=== PATIENT | male | born 1945 | race Caucasian/White ===

== ENCOUNTER 2023-03-21 21:34 | Inpatient (IN) | payer MEDICARE, OTHER ==
[~2023-03-21] VITALS: Ht 167.6 cm; Wt 102.2 kg
[2023-03-21 22:09] VITALS: BP_SYST 120; PULSE 96; RESP 18; TEMP 98.3; O2SAT 97
[2023-03-21 22:55] LABS: EOSINOPHILS # (AUTO) 0.2 K/uL (0.0-0.4); LYMPHOCYTES # (AUTO) 0.9 K/uL (1.0-5.5); WHITE BLOOD COUNT (AUTO) 5.9 K/uL (4.8-10.8)
[2023-03-21 22:59] LABS: ANION GAP 9 (5-15); CALCIUM 8.6 mg/dL (8.4-11.0); CARBON DIOXIDE 26 mmol/L (23-29); CHLORIDE 106 mmol/L (98-107); GLUCOSE 192 mg/dL (74-106); POTASSIUM 4.2 mmol/L (3.5-5.1); SODIUM SERUM 141 mmol/L (136-145); UREA NITROGEN, BLOOD 14 mg/dL (8-21)
[2023-03-21 23:02] LABS: PROTHROMBIN TIME 10.2 SECS (9.5-12.5)
[2023-03-21 23:04] LABS: BASOPHILS # (AUTO) 0.1 K/uL (0.0-0.2); BASOPHILS % (AUTO) 0.9 % (0.0-2.0); EOSINOPHILS % (AUTO) 3.4 % (0.0-4.0); HEMOGLOBIN 12.7 g/dL (14.0-18.0); MEAN CORPUSCULAR HEMOGLOBIN 30 pg (27-31); MEAN CORPUSCULAR HGB CONC 33 % (32-36); MEAN CORPUSCULAR VOLUME 93 fL (79.0-98.0); MONOCYTES # (AUTO) 0.5 K/uL (0.0-1.0); NEUTROPHILS # (AUTO) 4.2 K/uL (1.8-7.7); NEUTROPHILS % (AUTO) 71.7 % (40.0-70.0); PLATELET COUNT (AUTO) 146 K/uL (130-430); RED CELL DISTRIBUTION WIDTH 14.5 % (9.0-15.0)
[2023-03-21 23:13] LABS: ALANINE AMINOTRANSFERASE 32 U/L (12-78); ALBUMIN 2.7 g/dL (3.4-4.8); ASPARTATE AMINOTRANSFERASE 21 U/L (10-37); THYROID STIMULATING HORMONE 4.93 uIu/mL (0.34-4.82); TOTAL BILIRUBIN 0.2 mg/dL (0.0-1.0); TOTAL PROTEIN, SERUM 6.4 g/dL (6.4-8.3)
[2023-03-21 23:27] LABS: ABG O2 SAT% ESTIMATE 96.1 % (94.0-100.0); ALLEN'S TEST POSITIVE (P); BLOOD GAS HCO3 25.2 mmol/L (21.0-27.0); BLOOD GAS PCO2 38.7 mmHg (32.0-45.0); BLOOD GAS PH 7.431 (7.350-7.450); BLOOD GAS PO2 79.3 mmHg (75.0-100.0)
[2023-03-21] MEDS ORDERED: NITROGLYCERIN 1 INCH (GM) OINT. TP ONE (23:30)
[2023-03-22] VITALS (8 sets, daily range): BP systolic 124–155; PULSE 64–74; RESP 17–18; TEMP 96.9–98.4; O2SAT 93–99
[2023-03-22] MEDS ORDERED: MEROPENEM 1 GM IVPB PREMIX 50 ML IV ONE (00:15)
[2023-03-22] MEDS ORDERED: VANCOMYCIN HCL 1,000 MG in NS 250 ML IV ONE (00:15)
[2023-03-22] MEDS ORDERED: VANCOMYCIN HCL 1000 MG/VIAL IV ONE ×2 (00:44→22:44)
[2023-03-22] MEDS ORDERED: MEROPENEM 500 MG VIAL IV ONE (00:47)
[2023-03-22] MEDS ORDERED: ROCPM1 IV (01:17)
[2023-03-22] MEDS ORDERED: INSU100V7 SUBCUT (01:17)
[2023-03-22] MEDS ORDERED: MELA5TAB12 PO (01:17)
[2023-03-22] MEDS ORDERED: IRBE150T48 PO (01:17)
[2023-03-22] MEDS ORDERED: SIMV-43 PO (01:17)
[2023-03-22] MEDS ORDERED: DAPA10TA PO (01:17)
[2023-03-22] MEDS ORDERED: ACET-73 PO (01:17)
[2023-03-22] MEDS ORDERED: VITD2000 PO (01:17)
[2023-03-22] MEDS ORDERED: METF-380 PO (01:17)
[2023-03-22] MEDS ORDERED: DOCU-144 PO (01:17)
[2023-03-22] MEDS ORDERED: SENN-278 PO (01:17)
[2023-03-22] MEDS ORDERED: TAMS-11 PO (01:17)
[2023-03-22] MEDS ORDERED: ACET325T53 PO (01:17)
[2023-03-22] MEDS ORDERED: FINA-37 PO (01:17)
[2023-03-22] MEDS ORDERED: MOM PO (01:17)
[2023-03-22] MEDS ORDERED: BISA10SU61 RC (01:17)
[2023-03-22] MEDS ORDERED: LEVO25TA7 PO (01:17)
[2023-03-22] MEDS ORDERED: HYDROcodone/ACETAMIN 5-325 MG TAB (NORCO/ VICODIN) PO PRN (02:00)
[2023-03-22] MEDS ORDERED: ONDANSETRON HCL 4 MG/2 ML VIAL IVP PRN (02:00)
[2023-03-22] MEDS ORDERED: hydrALAZINE HCL 20 MG/ML VIAL IVP PRN (02:00)
[2023-03-22] MEDS ORDERED: ACETAMINOPHEN 325 MG TABLET PO PRN (02:00)
[2023-03-22] MEDS ORDERED: NITROGLYCERIN 0.4 MG TAB.SUBL SL PRN (09:30)
[2023-03-22] MEDS ORDERED: DOCUSATE SODIUM 100 MG CAPSULE PO PRN (09:45)
[2023-03-22] MEDS ORDERED: TAMSULOSIN HCL 0.4 MG CAP PO ONE (09:45)
[2023-03-22 10:55] LABS: BASOPHILS % (AUTO) 0.7 % (0.0-2.0); EOSINOPHILS # (AUTO) 0.2 K/uL (0.0-0.4); EOSINOPHILS % (AUTO) 3.8 % (0.0-4.0); HEMATOCRIT 41.2 % (36-54); HEMOGLOBIN 13.5 g/dL (14.0-18.0); LYMPHOCYTES # (AUTO) 0.7 K/uL (1.0-5.5); LYMPHOCYTES % (AUTO) 14.5 % (20.5-51.5); MEAN CORPUSCULAR HEMOGLOBIN 31 pg (27-31); MEAN CORPUSCULAR HGB CONC 33 % (32-36); MEAN CORPUSCULAR VOLUME 93 fL (79.0-98.0); MONOCYTES # (AUTO) 0.3 K/uL (0.0-1.0); MONOCYTES % (AUTO) 6.5 % (1.7-9.3); NEUTROPHILS # (AUTO) 3.7 K/uL (1.8-7.7); NEUTROPHILS % (AUTO) 74.5 % (40.0-70.0); PLATELET COUNT (AUTO) 135 K/uL (130-430); RED BLOOD CELL COUNT(AUTO) 4.41 MIL/uL (4.2-6.2); RED CELL DISTRIBUTION WIDTH 14.4 % (9.0-15.0); WHITE BLOOD COUNT (AUTO) 4.9 K/uL (4.8-10.8)
[2023-03-22] MEDS ORDERED: cefTRIAXone 1 GM in D5W 50 ML IV SCH (11:00)
[2023-03-22 11:13] LABS: ALANINE AMINOTRANSFERASE 34 U/L (12-78); ALBUMIN 2.9 g/dL (3.4-4.8); ANION GAP 8 (5-15); ASPARTATE AMINOTRANSFERASE 22 U/L (10-37); CALCIUM 8.7 mg/dL (8.4-11.0); CARBON DIOXIDE 27 mmol/L (23-29); CHLORIDE 104 mmol/L (98-107); CREATININE 1.15 mg/dL (0.55-1.30); GLUCOSE 280 mg/dL (74-106); SODIUM SERUM 139 mmol/L (136-145); TOTAL BILIRUBIN 0.4 mg/dL (0.0-1.0); TOTAL PROTEIN, SERUM 6.8 g/dL (6.4-8.3); UREA NITROGEN, BLOOD 11 mg/dL (8-21)
[2023-03-22] MEDS ORDERED: AZITHROMYCIN 500 MG in NS 250 ML IV SCH (12:00)
[2023-03-22] MEDS ORDERED: SIMVASTATIN 20 MG TABLET PO SCH (21:00)
[2023-03-22] MEDS ORDERED: DEXTROSE 50% JECT 50 ML DISP.SYRIN IVP PRN (21:45)
[2023-03-22] MEDS ORDERED: D5W 1,000 ML IV PRN (21:45)
[2023-03-22] MEDS ORDERED: GLUCOSE (DEXTROSE) ORAL GEL -Adults PO PRN (21:45)
[2023-03-22] MEDS: PIPERACILLIN/TAZO 3.375/DEX-IS 50 ML IV SCH ×2 (21:45→23:44)
[2023-03-22] MEDS ORDERED: VANCOMYCIN HCL 500 MG/VIAL IV ONE (22:44)
[2023-03-22] MEDS ORDERED: PIPERACILLIN/TAZOBACTAM 3.375 GM/VIAL (ZOSYN) IV ONE (22:45)
[2023-03-22] MEDS ORDERED: VANCOMYCIN HCL 1,500 MG in NS 250 ML IV SCH (23:00)
[2023-03-22] MEDS ORDERED: ZOLPIDEM TARTRATE 5 MG TABLET PO PRN (23:15)
[2023-03-23 00:37] VITALS: BP_SYST 130; PULSE 70; RESP 18; TEMP 97.6; O2SAT 98
[2023-03-23] MEDS: LEVOTHYROXINE SODIUM 0.1 MG TABLET PO SCH (06:34)
[2023-03-23] MEDS: PIPERACILLIN/TAZO 3.375/DEX-IS 50 ML IV SCH ×3 (06:34→17:19)
[2023-03-23 07:43] VITALS: BP_SYST 127; PULSE 63; RESP 17; TEMP 97.5; O2SAT 96
[2023-03-23 08:00] VITALS: O2SAT 96
[2023-03-23 08:20] LABS: BASOPHILS % (AUTO) 0.7 % (0.0-2.0); EOSINOPHILS # (AUTO) 0.2 K/uL (0.0-0.4); EOSINOPHILS % (AUTO) 4.8 % (0.0-4.0); HEMATOCRIT 40.3 % (36-54); LYMPHOCYTES # (AUTO) 0.9 K/uL (1.0-5.5); LYMPHOCYTES % (AUTO) 19.2 % (20.5-51.5); MEAN CORPUSCULAR HEMOGLOBIN 30 pg (27-31); MEAN CORPUSCULAR HGB CONC 32 % (32-36); MEAN CORPUSCULAR VOLUME 94 fL (79.0-98.0); MONOCYTES # (AUTO) 0.4 K/uL (0.0-1.0); MONOCYTES % (AUTO) 8.1 % (1.7-9.3); NEUTROPHILS # (AUTO) 3.2 K/uL (1.8-7.7); NEUTROPHILS % (AUTO) 67.2 % (40.0-70.0); PLATELET COUNT (AUTO) 132 K/uL (130-430); RED CELL DISTRIBUTION WIDTH 14.3 % (9.0-15.0); WHITE BLOOD COUNT (AUTO) 4.8 K/uL (4.8-10.8)
[2023-03-23 08:35] LABS: ANION GAP 5 (5-15); CALCIUM 9.1 mg/dL (8.4-11.0); CARBON DIOXIDE 32 mmol/L (23-29); CHLORIDE 106 mmol/L (98-107); CREATININE 1.11 mg/dL (0.55-1.30); GLUCOSE 186 mg/dL (74-106); POTASSIUM 4.7 mmol/L (3.5-5.1); SODIUM SERUM 143 mmol/L (136-145); UREA NITROGEN, BLOOD 11 mg/dL (8-21)
[2023-03-23] MEDS ORDERED: TAMSULOSIN HCL 0.4 MG CAP PO SCH (09:00)
[2023-03-23] MEDS: TAMSULOSIN HCL 0.4 MG CAP PO SCH (09:27)
[2023-03-23 11:30] VITALS: BP_SYST 140; PULSE 74; RESP 19; TEMP 98.1; O2SAT 95
[2023-03-23 16:49] VITALS: BP_SYST 119; PULSE 74; RESP 18; TEMP 98.4; O2SAT 95
[2023-03-23 20:00] VITALS: BP_SYST 157; PULSE 79; RESP 20; TEMP 97.1; O2SAT 95
[2023-03-23] MEDS ORDERED: SIMVASTATIN 40 MG TABLET PO SCH (21:00)
[2023-03-23] MEDS: DOXYCYCLINE HYCLATE 100 MG CAPSULE PO SCH (21:35)
[2023-03-23] MEDS: INSULIN REGULAR, HUMAN 100 UNITS/ML, 3 ML VIAL (humuLIN R) SUBCUT PRN (21:41)
[2023-03-24] MEDS: PIPERACILLIN/TAZO 3.375/DEX-IS 50 ML IV SCH ×3 (00:07→12:09)
[2023-03-24 00:44] VITALS: BP_SYST 156; PULSE 64; RESP 18; TEMP 98; O2SAT 100
[2023-03-24 04:57] LABS: BASOPHILS % (AUTO) 0.9 % (0.0-2.0); EOSINOPHILS # (AUTO) 0.3 K/uL (0.0-0.4); EOSINOPHILS % (AUTO) 4.9 % (0.0-4.0); HEMOGLOBIN 13.2 g/dL (14.0-18.0); LYMPHOCYTES % (AUTO) 19.8 % (20.5-51.5); MEAN CORPUSCULAR HEMOGLOBIN 31 pg (27-31); MEAN CORPUSCULAR HGB CONC 33 % (32-36); MEAN CORPUSCULAR VOLUME 93 fL (79.0-98.0); MONOCYTES # (AUTO) 0.4 K/uL (0.0-1.0); MONOCYTES % (AUTO) 7.6 % (1.7-9.3); NEUTROPHILS # (AUTO) 3.5 K/uL (1.8-7.7); NEUTROPHILS % (AUTO) 66.8 % (40.0-70.0); PLATELET COUNT (AUTO) 158 K/uL (130-430); RED BLOOD CELL COUNT(AUTO) 4.33 MIL/uL (4.2-6.2); RED CELL DISTRIBUTION WIDTH 14.4 % (9.0-15.0); WHITE BLOOD COUNT (AUTO) 5.2 K/uL (4.8-10.8)
[2023-03-24 05:11] LABS: ANION GAP 7 (5-15); CALCIUM 8.9 mg/dL (8.4-11.0); CARBON DIOXIDE 31 mmol/L (23-29); CHLORIDE 104 mmol/L (98-107); CREATININE 1.11 mg/dL (0.55-1.30); GLUCOSE 136 mg/dL (74-106); SODIUM SERUM 142 mmol/L (136-145); UREA NITROGEN, BLOOD 10 mg/dL (8-21)
[2023-03-24] MEDS: LEVOTHYROXINE SODIUM 0.1 MG TABLET PO SCH (06:02)
[2023-03-24 07:37] VITALS: BP_SYST 142; PULSE 58; RESP 18; TEMP 97.2; O2SAT 95
[2023-03-24 08:00] VITALS: O2SAT 99
[2023-03-24] MEDS: DOXYCYCLINE HYCLATE 100 MG CAPSULE PO SCH (08:44)
[2023-03-24] MEDS: TAMSULOSIN HCL 0.4 MG CAP PO SCH (08:44)
[2023-03-24] MEDS ORDERED: LEVO-62 PO (09:34)
[2023-03-24] MEDS ORDERED: METF-379 PO (09:35)
[2023-03-24 11:57] VITALS: BP_SYST 132; PULSE 73; RESP 17; TEMP 98.4; O2SAT 95
[2023-03-24] MEDS: INSULIN REGULAR, HUMAN 100 UNITS/ML, 3 ML VIAL (humuLIN R) SUBCUT PRN (13:16)
[2023-03-24 13:21] VITALS: PULSE 77; RESP 18; TEMP 98.4
== END 2023-03-24 16:45 | DRG 553 ==
LOC: SED 21:34 → SMU 03-22 01:46
PROVIDERS: ADMIT Family Medicine; ATTEND Family Medicine
DX: M19.012 Primary osteoarthritis, left shoulder (principal); J18.9 Pneumonia, unspecified organism; Y95 Nosocomial condition; E03.9 Hypothyroidism, unspecified; I10 Essential (primary) hypertension; N40.0 Benign prostatic hyperplasia without lower urinary tract symptoms; G89.29 Other chronic pain; M54.50 Low back pain, unspecified; E11.9 Type 2 diabetes mellitus without complications; I45.10 Unspecified right bundle-branch block; C43.9 Malignant melanoma of skin, unspecified; Z79.1 Long term (current) use of non-steroidal anti-inflammatories (NSAID); Z79.899 Other long term (current) drug therapy; E88.09 Other disorders of plasma-protein metabolism, not elsewhere classified
CPT/HCPCS: 36415; 36600; 71045; 80048; 80053; 82803; 82962; 83037; 83605; 83880; 84443; 84484; 85025; 85379; 85610-TC; 85730-TC; 87040; 87081; 99291; J0456; J0696; J2185; J2543; J3370; J7050; J7060